=== PATIENT | male | born 1970 | race African-American/Black ===

== ENCOUNTER 2018-07-27 14:07 | Emergency (ER) | payer OTHER ==
[2018-07-27 14:15] VITALS: BP 160/108; PULSE 89; TEMP 98.4; BMI 30.2
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
[2018-07-27] MEDS ORDERED: IBUPROFEN 600 MG TABLET (FP) PO ONE ×2 (14:33→14:35)
== END 2018-07-27 15:24 | disposition home or self-care (01) ==
LOC: JERFT 14:07
DX: M25.561 Pain in right knee (principal); V18.0XXA Pedal cycle driver injured in noncollision transport accident in nontraffic accident, initial encounter; Y92.488 Other paved roadways as the place of occurrence of the external cause; Y93.55 Activity, bike riding; Y99.8 Other external cause status
CPT/HCPCS: 73562-TC-RT-FY; 99281-25